=== PATIENT | male | born 1940 | race Caucasian/White ===

== ENCOUNTER → 2016-12-20 | Outpatient (CLI) | payer OTHER ==
--- NOTE | 2016-12-20 13:09 | KCIC ---
LUMBAR SPINE, FIVE VIEWS, 12/20/2016: History: Twisting injury, back pain There is a mild thoracolumbar scoliosis. The lumbar vertebral heights are fairly well-maintained, although L1 was not optimally delineated. There is disc space narrowing and marginal spurring at multiple levels, most severe at L4-5, L2-3 and L1-2. There are moderate degenerative changes involving the facet joints. There is no evidence of spondylolysis. There is a mild reverse spondylolisthesis at L2-3. Aortoiliac calcific plaquing is present. 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 Allowing for magnification it probably measures just over 5 centimeters in diameter. A left hip prosthesis is in place. IMPRESSION: 1. Moderately severe multilevel degenerative change. 2. Thoracolumbar scoliosis. 3. Distal abdominal aortic aneurysm. CT scanning is suggested for optimal delineation, if not already performed elsewhere. Electronically signed by: Sanya Pulido MD (Dec 20, 2016 13:08:28)
== END | disposition home or self-care (01) ==
LOC: KCIC 10:38
PROVIDERS: ATTEND Family Medicine
DX: M51.36 Other intervertebral disc degeneration, lumbar region (principal); X50.1XXA Overexertion from prolonged static or awkward postures, initial encounter
CPT/HCPCS: 72110